=== PATIENT | female | born 1975 ===

== ENCOUNTER 2016-05-14 09:08 | Observation (INO) | payer OTHER ==
[2016-05-13 12:07] LABS: Mean Corpuscular HGB Conc 29 % (30-34); Red Blood Count 4.52 M/mm3 (3.65-5.03); White Blood Count 6.6 K/mm3 (4.5-11.0)
[2016-05-13 12:08] LABS: Hematocrit 30.1 % (30.3-42.9); Hemoglobin 8.6 gm/dl (10.1-14.3); Mean Corpuscular Hemoglobin 19 pg (28-32); Mean Corpuscular Volume 67 fl (79-97); Red Cell Distribution Width 39.3 % (13.2-15.2)
[2016-05-13 12:53] LABS: Blastocytes % (Manual) 0 %; Hypochromasia 2+; Microcytosis 1+
[2016-05-13 12:54] LABS: Anisocytosis 3+; Diff Status Complete; Macrocytosis 1+; Platelet Estimate Consistent w Auto; Poikilocytosis 1+
[2016-05-13 12:57] LABS: Platelet Count 213 K/mm3 (140-440)
--- NOTE | 2016-05-13 13:15 | Anesthesia Consultation ---
Anesthesia Consult and Med Hx Date of service: 05/13/16 (Scheduled for Robotic Hysterectomy on 05/14/16) - Airway Anesthetic Teeth Evaluation: Good ROM Head & Neck: Adequate Mental/Hyoid Distance: Adequate Mallampati Class: Class II Intubation Access Assessment: Probably Good - Pulmonary Exam CTA: Yes - Cardiac Exam Cardiac Exam: RRR - Pre-Operative Health Status ASA Pre-Surgery Classification: ASA2 Proposed Anesthetic Plan: General - Pre-Anesthesia Comment Pre-Anesthesia Comments: PSHx includes BTL. Pt denies history of anesthesia complications. - Pulmonary Hx Smoking: No Hx Asthma: No - Cardiovascular System Hx Hypertension: No Hx Heart Murmur: Yes - Central Nervous System Hx Psychiatric Problems: No - Gastrointestinal Hx Gastroesophageal Reflux Disease: No - Endocrine Hx Renal Disease: No Hx Non-Insulin Dependent Diabetes: No - Hematic Hx Anemia: Yes (Transfusion 20 days) - Other Systems Hx Cancer: No Hx Obesity: No
--- NOTE | 2016-05-13 17:01 | History and Physical Report ---
History of Present Illness Date of examination: 05/13/16 Date of admission: 05/14/2016 Chief complaint: dysfunctional vaginal bleeding History of present illness: 41y/o with a history of dysfunctional vaginal bleeding. Patient's menorrhagia is so significant that it has resulted in severe iron deficiency anemia. She was recently transfused 2 units of prbcs for a hemoglobin of 5. Pelvic ultrasound demonstrates a 7cm myoma. The patient elects for definitive surgical management. Past History Past Medical History: other (anemia; leiomyoma) Past Surgical History: other (tubal ligation) BEAMER HAND History: fibroids Social history: - Obstetrical History : 2 Para: 2 Hx # Term Pregnancies: 2 Number of Pregnancies: 0 Spontaneous Abortions: 0 Induced : 0 Number of Living Children: 2 Medications and Allergies Allergies Allergy/AdvReac Type Severity Reaction Status Date / Time No Known Allergies Allergy Unverified 05/13/16 08:45 Home Medications Medication Instructions Recorded Confirmed Last Taken Type Ferrous Sulfate [Feosol] 325 mg PO TID 05/13/16 05/13/16 Unknown History Active Meds: Active Medications Famotidine (Pepcid) 20 mg PO PREOP NR Stop: 05/14/16 23:59 Sodium Chloride (Nacl 0.9% 1000 Ml) 1,000 mls @ 100 mls/hr IV DIRECT ALBINA Midazolam HCl (Versed) 2 mg IV PREOP NR Stop: 05/14/16 23:59 Review of Systems Constitutional: fatigue, weakness Genitourinary: vaginal bleeding - Vital Signs Vital signs: Vital Signs Temp Pulse Resp BP 97.8 F 78 14 114/70 05/13/16 10:55 05/13/16 10:55 05/13/16 10:55 05/13/16 10:55 Temp Pulse Resp BP Pulse Ox 97.8 F 78 14 114/70 05/13/16 10:55 05/13/16 10:55 05/13/16 10:55 05/13/16 10:55 - Physical Exam Breasts: Positive: deferred Cardiovascular: Regular rate Lungs: Positive: Clear to auscultation Abdomen: Positive: normal appearance, soft Results Result Diagrams: 05/13/16 11:00 Abnormal lab results 05/13/16 Range/Units 11:00 Hgb 8.6 L (10.1-14.3) gm/dl Hct 30.1 L (30.3-42.9) % MCV 67 L (79-97) fl MCH 19 L (28-32) pg MCHC 29 L (30-34) % RDW 39.3 H (13.2-15.2) % All other labs normal. Assessment and Plan - Patient Problems (1) Leiomyoma Status: Acute Plan to address problem: scheduled for a robotic hysterectomy/BSO (2) Dysfunctional uterine bleeding Status: Acute (3) Anemia Status: Acute Qualifiers: Anemia type: A Iron deficiency anemia type: I Vitamin B12 deficiency anemia type: V Folate deficiency anemia type: F Bone marrow failure anemia type: B Hemolytic anemia type: H Other causes of anemia: O
--- NOTE | 2016-05-14 07:56 | Admit Criteria Form ---
Admission Criteria Documentation: AMBULATORY SURGERY EXCEPTION CRITERIA Ambulatory Surgery Exception Criteria ( Place 'X' for any and all applicable criteria): Surgery or procedure performed on ambulatory basis may require inpatient stay for[A] ANY ONE of the following(1)(2)(3)(4)(5)(6)(7)(8)(9): [X] I. A preoperative situation, condition, or finding that warrants inpatient stay as indicated by ANY ONE of the following: [X] a) Inpatient care needed because of severity of a disease or condition rather than the surgery (eg, severe cardiac or respiratory disease, severe infection) (15) (16 ) (17) (18) [] b) Emergent procedure (eg, angioplasty for acute ischemia)(19) [] c) Complex surgical approach or situation as indicated by ANY ONE of the following(3): [] i) Open approach needed instead of usual endoscopic, transcatheter, or other less invasive procedure [] ii) Difficult approach because of previous operation [] iii) Airway monitoring required after open neck procedures(20)(21) [] iv) Large mass requiring unusually extensive dissection [] v) Additional complicating feature requiring inpatient care (eg, drain management)(22(23): [] d) Major surgery in a pt with high anesthetic risk as indicated by ANY ONE of the following (2)(3)(5)(7)(8): [] i) ASA risk class III or higher (severe systemic disease impairing function) [D] [] ii) Advanced age (eg, older than 85 years)(14)(24) [] iii) Symptomatic heart failure(25) [] iv) Symptomatic asthma or COPD(8)(21) [] v) Morbid obesity with hemodynamic or respiratory problems(20)( 21)(26)(27) [] vi) Obstructive sleep apnea(20)(21) [] vii) Former premature infants who are younger than 60 weeks [] viii) High risk for severe postoperative abnormalities (eg, severe postoperative hypocalcemia after parathyroidectomy for severe hyperparathyroidism)(27)( 28) [] ix) Unstable angina(25) [] e) Drug-related risk requiring inpatient stay as indicated by ANY ONE of the following(5)(10)(14)(32)(33) [] i) Procedure requires discontinuing drugs or other therapy (eg , antiarrhythmic medication, antiseizure medication), which necessitates inpatient observation or treatment.(18)(31) [] ii) Major surgery and high risk drug use as indicated by ANY ONE of the following: [] 1) Active abuse of cocaine or similar drug [] 2) Monoamine oxidase inhibitor use [] 3) Other drug identified as posing risk [] f) Inadequate outpatient care situation as indicated by ANY ONE of the following(5)(10)(14)(32)(33) [] i) Patient lives remote from medical facility and procedure has urgent complication potential, and temporary nearby residence cannot be arranged [] ii) Patient will have postprocedure incapacitation and inadequate assistance at home, or alternative level of care cannot be arranged. [] iii) Patient will have long general anesthesia or procedure side effect resolution time, and competent person to stay with patient on first postoperative night at home or alternative level of care cannot be arranged. []iv) Other inadequate outpatient situation that cannot be handled by other means [] II. A perioperative event, condition, or finding that warrants inpatient stay as indicated by ANY ONE of the following (1)(2)(3): [] a) Inadequate physiologic recovery: cardiovascular, respiratory, or hemodynamic status not normal or near preoperative baseline(18) [] b) Hemodynamic instability [] c) Patient not alert with near normal or baseline mental status [] d) Temperature not normal or as expected and not appropriate for outpatient treatment of condition [] e) Ambulatory or appropriate activity level status not yet achieved post procedure [E](34)(35)(36) [] f) Operative site not appropriate (eg, unexpected or excessive drainage or bleeding) [] g) Postoperative effects not resolved or adequately managed (eg, significant pain or vomiting not appropriate for outpatient or next level of care)(10)(12) [] h) Complicating features requiring inpatient care as indicated by ANY ONE of the following(37): [] i) Severe complications of procedure (eg, bowel injury, airway compromise, vascular injury,severe hemorrhage) [] ii) Extensive (eg, dissection far beyond usual scope of procedure ) or prolonged (eg, 120 minutes beyond usual) surgery needed requiring inpatient postoperative care [] iii) Conversion to an open or complex procedure that requires inpatient care (eg, open vs laparoscopic cholecystectomy, abdominal vs vaginal hysterectomy)(38) [] iv) Comorbid condition or test result identified during or post procedure that requires inpatient care (7) [] v) Malignant hyperthermia(30) [] vi) Other complicating feature requiring inpatient care(22)(23) Inpatient stay may be needed until ALL of the following are present (1)(2)(3)(4) (5)(6)(10)(14)(33)(40): []a) Physiologic recovery: cardiovascular, respiratory, and hemodynamic status normal or near preoperative baseline []b) Hemodynamic stability []c) Patient alert, with near normal or baseline mental status []d) Temperature appropriate: patient afebrile or temperature appropriate for outpt treatment of condition []e) Activity level appropriate: ambulatory or appropriate activity level post procedure []f) Operative site appropriate as indicated by ALL of the following: []i) Site dry or with expected drainage []ii) Any blood noted is as expected for procedure. []g) Postoperative effects resolved or managed as indicated by ALL of the following: []i) Pain management appropriate for outpatient (or next level of) care(10) []ii) Minimal nausea and vomiting: if present, successfully treated with oral medication(12) []iii) Headache, dizziness, or drowsiness (if present) are mild. []h) Voiding status acceptable as indicated by ANY ONE of the following: []i) Voiding spontaneously []ii) No voiding but instructions given for follow-up in 6 to 8 hours []iii) Urinary catheter in place, and instructions given for follow-up []i) Complicating features requiring inpatient care manageable at a lower level of care(37) []j) Comorbid conditions manageable at a lower level of care(37) The original [employer] content created by [employer] has been revised. The portions of the content which have been revised are identified through the use of italic text or in bold, and [employer] has neither reviewed nor approved the modified material. All other unmodified content is copyright [employer]. Please see references footnoted in the original [employer] edition 2016 Admission Criteria Met: Yes
[~2016-05-14 09:08] MED LIST: ANCEF/STERILE WATER 2 GM/20 ML 2 GM/20 ML SYRINGE IV NR; DILAUDID IV PRN; NACL 0.9% 1000 ML 1,000 ML IV SCH; NACL 0.9% 500 ML 500 ML IV SCH; PEPCID PO NR; SUBLIMAZE IV NR; VERSED IV NR; ZOFRAN IV PRN
[2016-05-14] MEDS ORDERED: NACL BACTERIOSTATIC INFILTRATI ONE (09:46)
[2016-05-14] MEDS ORDERED: NACL 0.9% 500 ML 500 ML IV SCH (11:00)
[2016-05-14] MEDS ORDERED: XYLOCAINE 1% 20 mL ONE (12:00)
[2016-05-14] MEDS ORDERED: NEURONTIN PO NR (12:00)
[2016-05-14] MEDS ORDERED: MARCAINE-EPI/PF 0.5%-1:200,000 INFILTRATI ONE (12:00)
[2016-05-14] MEDS ORDERED: MARCAINE-EPI 0.25%-1:200,000 INFILTRATI ONE (12:00)
[2016-05-14] MEDS ORDERED: NACL P/F VIAL (10 ML) ONE (12:00)
[2016-05-14] MEDS ORDERED: SUBLIMAZE ONE (12:59)
[2016-05-14] MEDS ORDERED: ZEMURON IV ONE (13:00)
[2016-05-14] MEDS ORDERED: DIPRIVAN 10 MG/ML IV ONE (13:00)
[2016-05-14] MEDS ORDERED: ROBINUL ONE ×2 (13:37→14:45)
[2016-05-14] MEDS ORDERED: NACL 0.9% IR ONE ×2 (13:38)
[2016-05-14] MEDS ORDERED: NEO SYNEPHRINE ONE (13:38)
[2016-05-14] MEDS ORDERED: DILAUDID ONE (13:41)
[2016-05-14] MEDS ORDERED: DECADRON ONE (13:57)
[2016-05-14] MEDS ORDERED: ZOFRAN ONE (13:57)
[2016-05-14] MEDS ORDERED: NEOSPORIN GU IR ONE (14:09)
[2016-05-14] MEDS ORDERED: NACL 0.9% 100 ML ONE (14:35)
[2016-05-14] MEDS ORDERED: NEOSTIGMINE ONE (14:45)
[2016-05-14] MEDS ORDERED: TORADOL ONE (14:46)
[2016-05-14] MEDS ORDERED: NARCAN 0.4 MG/1 ML IV PRN (15:05)
--- NOTE | 2016-05-14 15:05 | Operative Report ---
Operative Report Operative Report: Date of surgery: 05/14/2016 Preoperative diagnoses: Symptomatic uterine fibroids; menorrhagia; dysmenorrhea Postoperative diagnoses: Same as above Procedure: Robotic hysterectomy; bilateral salpingo-oophorectomy Surgeon: Colette Spence M.D. Diver'S Tender: Carl Mar Anesthesia: Gen. endotracheal anesthesia Estimated blood loss: 50 mL Pathology: Uterus, cervix, tubes and ovaries Indication: 41-year-old 002 with symptomatic uterine fibroids and significant menorrhagia which has caused on deficiency anemia. Procedure: The patient was taken to the operating room and given general endotracheal anesthesia without complication. She is prepped and draped in a normal sterile fashion. A bivalve speculum was placed in the patient's vagina and a single- tooth tenaculum placed on the anterior lip of the cervix. The uterus was sounded with the uterine sound. A [employer] uterine manipulator was placed in the bivalve speculum was then removed. Attention was then turned to the patient's abdomen where a millimeter supra umbilical skin incision was then made. A Veress needle was placed and peritoneal entry was verified water-filled syringe. Insufflation of the peritoneal cavity was performed with CO2 gas. The 12 mm trocar was then placed under direct visualization. An additional 8 mm trocar was placed on the patient's left and right lateral side just opposite of the supraumbilical trocar. An additional 5 mm right lateral trocar was then placed as the accessory port. The patient was then placed in steep Trendelenburg. The da Dedrick robot was then engaged. A fenestrated forcep was placed in arm 2 and a vessel sealer was placed in arm 1. The surgeon then transferred to the surgical console. The mesosalpinx was then isolated on the right. The vessel sealer was used to coagulate the infundibulopelvic ligament which was then transected. The tube and ovary were transected from the blood supply. The round ligament was then coagulated and transected also. The vesicouterine peritoneum was then entered from the patient's right side. The uterine vessels were then coagulated with the vessel sealer. The vessels were then transected . Attention was then turned to the patient's left side where the infundibulopelvic ligament and mesosalpinx were again isolated coagulated and transected. The vesical peritoneum was then entered from the left and joined in the midline. Peritoneum was reflected off of the lower uterine segment. Uterine vessels were then coagulated and then transected. The blood supply to the uterus was adequately contained, a posterior colpotomy was made. The V care ring was visualized. Posterior colpotomy was created with the monopolar scissors. The incision was continued circumferentially until anterior colpotomy was made. The cervix and uterus were amputated from the vaginal cuff. The uterus was then removed along with the tubes and ovaries bilaterally through the vagina and a warm laparotomy sponge was placed and maintain the pneumoperitoneum. Secondary to the large size of the uterus the uterus had to be morcellated vaginally to facilitate delivery through the vagina. The vaginal cuff was then closed in a running fashion with V lock suture. Irrigation of the pelvis was performed. Tisseel was applied to the incision. The supraumbilical 12 mm trocar site was closed with the Mina Goodman device. The skin was then reapproximated with 4-0 Monocryl. The tissue was sent to pathology which included the cervix and uterus, tubes and ovaries. The patient was then successfully extubated. She was then taken to the recovery room in stable condition. All sponge laps and needle counts were correct x2.
[2016-05-14] MEDS ORDERED: PERCOCET 5/325 PO PRN (15:06)
[2016-05-14] MEDS ORDERED: TYLENOL PO PRN (15:06)
[2016-05-14] MEDS ORDERED: MOTRIN PO PRN (15:06)
[2016-05-14] MEDS ORDERED: NACL 0.9% 1000 ML 2,000 ML ONE (15:13)
--- NOTE | 2016-05-14 15:48 | Post Anesthesia Evaluation ---
- Post Anesthesia Evaluation Patient Participated: Yes Airway Patent: Yes Stable Respiratory Function: Yes Temp > 96.8F: Yes Pain Manageable: Yes Adequeate Hydration: Yes Anesthesia Complications: No Block Receding Appropriately: Not Applicable
[2016-05-14] MEDS ORDERED: D5LR 1,000 ML IV SCH (16:00)
[2016-05-14] MEDS ORDERED: MORPHINE PCA 30MG/30ML IV SCH (16:00)
[2016-05-14] MEDS: TORADOL IV SCH (22:05)
[2016-05-15] MEDS: TORADOL IV SCH ×2 (04:06→11:08)
[2016-05-15 07:30] LABS: Hematocrit 32.2 % (30.3-42.9); Hemoglobin 9.9 gm/dl (10.1-14.3)
--- NOTE | 2016-05-15 10:42 | Progress Note ---
Subjective Date of service: 05/15/16 Interval history: 1st POD after hysterectomy Patient is in the bed, comfortable. Pain is mostly controlled with pain meds. Ambulated well. No nausea or vomiting. No anesthesia complications Objective - Constitutional Vitals: Vital Signs - 12hr 05/14/16 05/15/16 05/15/16 23:55 05:00 08:20 Temperature 98.8 F 99.3 F 98 F Pulse Rate [ 70 61 48 L Left Radial] Respiratory 20 20 18 Rate Blood Pressure 102/60 99/61 100/60 [Left Arm] - Labs CBC & Chem 7: 05/15/16 07:08 Labs: Abnormal lab results 05/14/16 05/15/16 Range/Units 09:45 07:08 Hgb 9.9 L (10.1-14.3) gm/dl Crossmatch See Detail
--- NOTE | 2016-05-15 14:24 | Progress Note ---
Assessment and Plan - Patient Problems (1) Leiomyoma Current Visit: Yes Status: Acute Plan to address problem: awaiting return of bowel function encourage ambulation (2) Dysfunctional uterine bleeding Current Visit: Yes Status: Acute (3) Anemia Current Visit: Yes Status: Acute Qualifiers: Anemia type: A Iron deficiency anemia type: I Vitamin B12 deficiency anemia type: V Folate deficiency anemia type: F Bone marrow failure anemia type: B Hemolytic anemia type: H Other causes of anemia: O Subjective - Subjective Date of service: 05/15/16 Interval history: Patient denies flatus despite tolerating a regular diet. She has had minimal ambulation. Patient reports: no dizzy ambulation, no flatus Objective - Vital Signs Latest vital signs: Vital Signs Temp Pulse Pulse Resp BP BP Pulse Ox 05/15/16 12:45 98 F 66 18 104/60 05/15/16 08:20 98 F 48 L 18 100/60 05/15/16 05:00 99.3 F 61 20 99/61 05/14/16 23:55 98.8 F 70 20 102/60 05/14/16 20:43 98.6 F 75 18 115/72 05/14/16 18:00 18 05/14/16 16:30 97.8 F 67 16 106/86 05/14/16 16:05 70 12 98/60 99 05/14/16 15:55 76 13 107/54 100 05/14/16 15:40 16 L 16 104/60 100 05/14/16 15:35 61 15 97/56 100 05/14/16 15:30 60 16 100/59 100 05/14/16 15:25 97.4 F L 61 17 98/52 100 Intake and Output 05/14/16 05/15/16 05/15/16 22:59 06:59 14:59 Intake Total 1325 1240 365 Output Total 250 1300 100 Balance 1075 -60 265 Intake: IV 1325 1000 125 D5lr 1,000 ml @ 125 mls/ 375 1000 hr IV DIRECT ALBINA Rx#: [id number] Right Hand 125 Oral 240 Intake, Free Water 240 Output: Urine 250 1300 100 Indwelling Catheter 1300 Void 100 Other: Total, Intake Amount 240 Total, Output Amount 700 100 Voiding Method Indwelling Catheter Indwelling Catheter Toilet # Voids Void 1 - Exam Abdomen: Present: soft, distention Incision: Present: normal, dry - Labs Labs: Abnormal lab results 05/15/16 Range/Units 07:08 Hgb 9.9 L (10.1-14.3) gm/dl
--- NOTE | 2016-05-15 14:27 | Discharge Summary ---
Providers - Providers Date of Admission: 05/14/16 15:06 Date of discharge: 05/15/16 Attending physician: ROBERT SOTO Primary care physician: ENMA CAMERON Hospitalization Reason for admission: other (uterine fibroids) Procedure: other (robotic hysterectomy/BSO) Incision: normal Discharge diagnosis: other (uterine fibroids; anemia) Hospital course: Patient admitted for robotic hysterectomy/BSO. Transfused 2 units preop for anemia. See operative note. Slow return of bowel function. Patient discharged home once she met discharge criteria. Condition at discharge: Good Disposition: DISCHARGED TO HOME OR SELFCARE - Discharge Diagnoses (1) Leiomyoma Status: Acute (2) Dysfunctional uterine bleeding Status: Acute (3) Anemia Status: Acute Qualifiers: Anemia type: A Iron deficiency anemia type: I Vitamin B12 deficiency anemia type: V Folate deficiency anemia type: F Bone marrow failure anemia type: B Hemolytic anemia type: H Other causes of anemia: O Plan - Discharge Medications Prescriptions: Docusate Sodium [Colace] 100 mg PO BID PRN #60 capsule PRN Reason: Constipation Ibuprofen [Motrin] 800 mg PO Q8HR PRN #60 tablet PRN Reason: Pain Oxycodone HCl/Acetaminophen [Percocet 7.5/325 mg] 1 each PO Q6HR PRN #45 tablet PRN Reason: Pain - Provider Discharge Summary Activity: no sex for 6 weeks, no heavy lifting 4 weeks, no strenuous exercise Diet: routine Instructions: routine Additional instructions: [] Smoking cessation referral if applicable(refer to patient education folder for contact #) [] Refer to [facility]'s [facility] Booklet Call your doctor immediately for: * Fever > 100.5 * Heavy vaginal bleeding ( >1 pad per hour) * Severe persistent headache * Shortness of breath * Reddened, hot, painful area to leg or breast * Drainage or odor from incision. * Keep incision clean and dry at all times and follow doctor's instructions regarding bathing/showering followup with Dr Marin in 4 weeks - Follow up plan
[2016-05-15 16:17] VITALS: BP 108/66
[2016-05-15] MEDS ORDERED: FLUARIX QUAD 2016-2017(36 MOS+) IM ONE (18:00)
== END 2016-05-15 19:00 | disposition home or self-care (01) ==
LOC: OR 09:08 → INTOOBSV 15:06 → OB 15:06
PROVIDERS: ADMIT Obstetrics & Gynecology; ATTEND Obstetrics & Gynecology
DX: N93.8 Other specified abnormal uterine and vaginal bleeding (principal); D25.9 Leiomyoma of uterus, unspecified; D64.9 Anemia, unspecified; N92.0 Excessive and frequent menstruation with regular cycle; N94.6 Dysmenorrhea, unspecified; Z23 Encounter for immunization
CPT/HCPCS: 36415; 36430; 58571; 64450; 84703; 85007; 85014; 85018; 85025; 86850; 86900; 86901; 86920; 88307; 90686; 96374; 96375; 96376; A4217; C9250; G0008; G0378; J0690; J1100; J1170; J1885; J2250; J2270; J2370; J2405; J2704; J2710; J3010; J7030; J7121; P9016; S2900; 90471